=== PATIENT | male | born 1955 | race Caucasian/White ===

== ENCOUNTER 2021-10-29 06:19 | Inpatient (IN) | payer OTHER ==
[2021-10-26 10:15] LABS: Basophils # (auto) 0.1 10 ^3/uL (0-0.2); Basophils % (auto) 1.1 % (0.0-2.0); Eosinophils # (auto) 0.2 10 ^3/uL (0-0.8); Eosinophils % (auto) 2.7 % (0.0-7.0); Hematocrit 51.6 % (41.0-53.0); Lymphocytes # (auto) 1.8 10 ^3/uL (0.4-5.4); Lymphocytes % (auto) 26.6 % (10.0-50.0); Mean Corpuscular Hemoglobin 30.5 pg (28.0-32.0); Mean Corpuscular Volume 92.5 fL (80.0-100.0); Monocytes # (auto) 0.6 10 ^3/uL (0-1.3); Monocytes % (auto) 8.5 % (0.0-12.0); Neutrophils # (auto) 4.1 10 ^3/uL (1.6-8.6); Neutrophils % (auto) 61.1 % (37.0-80.0); Red Blood Cells 5.58 10^6/uL (4.5-5.90); Red Cell Distribution Width 13.8 % (11.8-14.3); White Blood Cell 6.7 10^3/uL (4.4-10.8)
[2021-10-26 10:30] LABS: Urine Bacteria NONE SEEN /hpf (None Seen); Urine Blood Negative /uL (Negative); Urine Specific Gravity 1.014 (1.001-1.035); Urine WBC 1 /hpf (0 - 3)
[2021-10-26 11:07] LABS: Calcium 8.9 mg/dL (8.5-10.1); Potassium 4.7 mmol/L (3.5-5.1)
[2021-10-26 11:11] LABS: BUN/Creatinine Ratio 17.6; Bilirubin, Total 0.6 mg/dL (0.2-1.0); Total Protein 7.3 g/dL (6.4-8.2)
[2021-10-29] VITALS (10 sets, daily range): BP systolic 96–127; BP diastolic 66–86
[~2021-10-29] VITALS: Ht 180.3 cm; Wt 119.2 kg
[~2021-10-29 06:19] MED LIST: ATO40T PO; IBUP800T27 PO; LISI-716 PO; NIC21P TD
[2021-10-29] MEDS ORDERED: ceFAZolin 1GM/50ML 100 ML IV ONE (06:38)
[2021-10-29] MEDS ORDERED: TRANEXAMIC ACID 20 ML ONE (06:55)
[2021-10-29] MEDS ORDERED: BUPIVACAINE 0.25% INJ 50ML VIAL ONE (06:56)
[2021-10-29] MEDS ORDERED: KETOROLAC TROMETH 30 MG/ML 1ML VIAL ONE (06:58)
[2021-10-29] MEDS ORDERED: VANCOMYCIN HCL 1000 MG VL ONE (06:59)
[2021-10-29] MEDS ORDERED: EPINEPHrine HCL 1 MG/1 ML AMP ONE ×2 (07:00→07:01)
[2021-10-29] MEDS ORDERED: MIDAZOLAM HCL 2MG/2ML 2ml VIAL (1mg/ml) ONE (07:02)
[2021-10-29] MEDS ORDERED: fentaNYL CITRATE 100 MCG/2 ML VL ONE (07:02)
[2021-10-29] MEDS ORDERED: MORPHINE SULF PF 2 MG/2 ML SYRG ONE (07:02)
[2021-10-29] MEDS ORDERED: TETRACAINE 1% INJ 2 ML VIAL IJ ONE (07:07)
[2021-10-29] MEDS ORDERED: diphenhdrAMINE HCL 50 MG/1 ML VL IV PRN (09:00)
[2021-10-29] MEDS ORDERED: DexAMETHasone SOD PHOS 10MG/1ML VIAL INJ IV PRN (09:00)
[2021-10-29] MEDS ORDERED: HYDROmorphone HCL 2 MG/ML VL IV PRN ×2 (09:00→10:30)
[2021-10-29] MEDS ORDERED: ONDANSETRON HCL 4 MG/2 ML VIAL IV PRN (09:00)
[2021-10-29] MEDS ORDERED: NALOXONE HCL 0.4 MG/ML VIAL IV PRN (09:00)
[2021-10-29] MEDS ORDERED: KETOROLAC TROMETH 30 MG/ML 1ML VIAL IV PRN (09:00)
[2021-10-29] MEDS ORDERED: NALBUPHINE HCL 10 MG/1ml INJECTION SUBCUT ONE (09:00)
[2021-10-29] MEDS ORDERED: NITROGLYCERIN 0.4 MG SL TAB SL PRN (10:30)
[2021-10-29] MEDS ORDERED: OXYCODONE W/ ACETAMINOPHEN 5/325MG TABLET PO PRN (10:30)
[2021-10-29] MEDS ORDERED: MORPHINE SULFATE INJECTION 2 MG/ML SYRG IV PRN (10:30)
[2021-10-29] MEDS ORDERED: PROPOFOL 10 MG/ML 20 ML IV ONE (10:40)
[2021-10-29] MEDS ORDERED: LIDOCAINE 2% (LOCAL ANESTH.) PF 5ml SDV ONE (10:40)
[2021-10-29] MEDS ORDERED: MILK OF MAGNESIA 30ML SUSP PO PRN (11:00)
[2021-10-29] MEDS ORDERED: BISACODYL 10 MG RECT SUPP PR PRN (11:00)
[2021-10-29] MEDS: ACETAMINOPHEN 325 MG TAB PO SCH ×2 (12:00→17:20)
[2021-10-29] MEDS: KETOROLAC TROMETH 30 MG/ML 1ML VIAL IV SCH ×2 (12:00→17:20)
[2021-10-29] MEDS: LACTATED RINGER'S 1,000 ML IV SCH ×2 (14:30→21:45)
[2021-10-29] MEDS ORDERED: NICOTINE 21MG/24 HR TOPICAL PATCH TD ONE (16:15)
[2021-10-29] MEDS: ceFAZolin 2 GM in D5W 5% 100 ML IV SCH ×2 (16:37→21:26)
[2021-10-29] MEDS: SODIUM CHLOR 0.9% PF (SALINE LOCK) 10ML VIAL/SYR IV SCH ×2 (16:37→21:27)
[2021-10-29] MEDS: PREGABALIN 25 MG CAP PO SCH (21:27)
[2021-10-29] MEDS: DOCUSATE SOD 100 MG CAP PO SCH (21:28)
[2021-10-29] MEDS ORDERED: ATORVASTATIN 20 MG TAB PO SCH (22:00)
[2021-10-30] VITALS (15 sets, daily range): BP systolic 106–147; BP diastolic 77–94
[2021-10-30] MEDS: KETOROLAC TROMETH 30 MG/ML 1ML VIAL IV SCH ×3 (00:22→12:00)
[2021-10-30] MEDS: ACETAMINOPHEN 325 MG TAB PO SCH ×3 (00:22→12:00)
[2021-10-30] MEDS: LACTATED RINGER'S 1,000 ML IV SCH (04:34)
[2021-10-30] MEDS: SODIUM CHLOR 0.9% PF (SALINE LOCK) 10ML VIAL/SYR IV SCH ×2 (06:24→14:00)
[2021-10-30 07:12] LABS: Basophils # (auto) 0 10 ^3/uL (0-0.2); Basophils % (auto) 0.5 % (0.0-2.0); Eosinophils # (auto) 0.1 10 ^3/uL (0-0.8); Eosinophils % (auto) 1.1 % (0.0-7.0); Hematocrit 42.9 % (41.0-53.0); Hemoglobin 14.3 g/dL (13.5-17.5); Lymphocytes # (auto) 1.1 10 ^3/uL (0.4-5.4); Lymphocytes % (auto) 12.1 % (10.0-50.0); Mean Corpuscular Hgb Conc. 33.4 g/dL (32.0-36.0); Mean Corpuscular Volume 92.8 fL (80.0-100.0); Monocytes % (auto) 10.9 % (0.0-12.0); Neutrophils # (auto) 6.9 10 ^3/uL (1.6-8.6); Neutrophils % (auto) 75.4 % (37.0-80.0); Red Blood Cells 4.62 10^6/uL (4.5-5.90); White Blood Cell 9.2 10^3/uL (4.4-10.8)
[2021-10-30 07:38] LABS: Calcium 8.5 mg/dL (8.5-10.1); Potassium 4.8 mmol/L (3.5-5.1)
[2021-10-30] MEDS ORDERED: LISINOPRIL 10 MG TAB PO SCH (10:00)
[2021-10-30] MEDS ORDERED: NICOTINE 21MG/24 HR TOPICAL PATCH TD SCH (10:00)
[2021-10-30] MEDS: DOCUSATE SOD 100 MG CAP PO SCH (10:00)
[2021-10-30] MEDS ORDERED: APIXABAN 2.5 MG TAB PO SCH (10:00)
[2021-10-30] MEDS: PREGABALIN 25 MG CAP PO SCH (10:37)
== END 2021-10-30 16:24 | disposition home health service (06) | DRG 470 ==
LOC: SUR 06:19 → TELE 10:18 → TELE-WESTW 15:45
PROVIDERS: ADMIT Orthopaedic Surgery; ATTEND Orthopaedic Surgery
PROC: 0SR906Z Replacement of Right Hip Joint with Oxidized Zirconium on Polyethylene Synthetic Substitute, Open Approach (ICD-10-PCS; principal; 2021-10-29 07:19)
DX: M16.11 Unilateral primary osteoarthritis, right hip (principal)
CPT/HCPCS: 36415; 72170; 80048; 80053; 81001; 85025; 86850; 86900; 86901; 97163; A4565; G0378; J0171; J0690; J1885; J2001; J2250; J2704; J3490; J7060

== ENCOUNTER 2025-05-01 13:16 | Emergency (ER) | payer MEDICARE, OTHER ==
[~2025-05-01] VITALS: Ht 180.3 cm; Wt 106.9 kg
[~2025-05-01 13:16] MED LIST changes: -ATO40T PO; +ATOR-507 PO; -IBUP800T27 PO; -LISI-716 PO; +LISI10TA34 PO
[2025-05-01 14:58] VITALS: BP 160/105; PULSE 61; RESP 16; TEMP 97.8; O2SAT 96
[2025-05-01] MEDS ORDERED: AUG875T PO (14:58)
[2025-05-01] MEDS ORDERED: CIPR1SUS8 OT (14:58)
--- NOTE | 2025-05-01 14:58 | ED.PDOC ---
Eye-HPI HPI Comments 69 year old male with no past medical history presents to the emergency de partment with a chief complaint of LT ear pain onset 3 days. Patient has been experiencing LT ear pain for the past 3 days, was cleaning his ear this morning and noticed blood. He has tried OTC medication with no improvement of symptoms. No other symptoms or modifying factors present at this time. Denies blunt trauma (hand blow to the ear, fall, direct hit) Denies ear trauma Denies barotrauma Denies blast injury Denies air travel Denies scuba diving Denies hearing loss Denies persistent ringing in the ear Denies fever chills night sweats unintentional weight loss Denies nausea vomiting severe headache or recent vision changes Chief Complaint: Earache Time Seen by MD: 14:31 Reviewed Notes: Nurses Notes, Medications, Allergies Allergies: Coded Allergies: NO KNOWN ALLERGIES (Unverified , 09/29/17) Home Meds Active Scripts Amoxicillin & Pot Clavulanate (AUGMENTIN TABLET) 875 Mg Tb, 875 MG PO BID for 7 Days, #14 TAB 0 Refills Prov:JORGE HAMMER HYPERBARIC TECHNICIAN 05/01/25 Ciprofloxacin-Dexamethasone (Ciprofloxacin/Dexamethaso 0.3-0.1 %) 1 Raquel Raquel, 4 DROP OT BID for 7 Days, #5 ML 0 Refills Prov:JORGE HAMMER HYPERBARIC TECHNICIAN 05/01/25 Reported Medications Nicotine (Nicoderm 21MG/24HR) 1 Patch Ph, 1 PATCH TD, PATCH 10/26/21 Atorvastatin Calcium (Lipitor) 40 Mg Tab, 40 MG PO DAILY, TAB 10/26/21 Lisinopril (Lisinopril) 10 Mg Tab, 10 MG PO DAILY for 30 Days, MG 09/07/16 Information Source: Patient Mode of Arrival: Ambulatory Timing: Days Duration: Since onset Prehospital treatment: Treatment (OTC ear medication) Quality: Pain Lids: Normal Conjunctiva: Normal Cornea: Normal Pupils: Normal EOM: Normal Fundus: Normal Slit lamp exam: Normal Anterior chamber: Normal Mouth: Normal ENT Ear Exam: Blood Nose: Normal Sinuses: Normal Oropharynx: Normal Onset: Spontaneous Throat Exposed to: None History of: None Associated signs and symptoms: Ear Pain Past Medical History PAST MEDICAL HISTORY: Denies Surgical History: Denies all surgeries Family History Family History: Reviewed,noncontributory to illness, No family hx of Cancer, No family hx of DM, No family hx of Heart mary, No family hx of HTN, No family hx ofKidney mary, No family hx of Liver mary, No family hx of Lung mary, No family hx of Stroke Social History Smoker: Non-Smoker Alcohol: Denies ETOH Use Drugs: Denies Drug Use Lives In: Home All Other Systems: Reviewed and Negative (as per HPI) Physical Exam General Appearance: No Apparent Distress, Normal HEENT: Normal ENT Inspection, Pharynx Normal, Other (no pre and post l ymphadenathopy, no signs of mastoditis, pain to lobule, canal narrow with erythema, unable to visualize TM due to brown/yellow discharge, hearing is intact) Neck: Full Range of Motion, Non-Tender, Normal, Normal Inspection Respiratory: Chest Non-Tender, Lungs Clear, No Accessory Muscle Use, No Respiratory Distress, Normal Breath Sounds Cardiovascular: No Edema, No JVD, No Murmur, No Gallop, Normal Peripheral Pulses, Regular Rate/Rhythm Breast Exam: Deferred Gastrointestinal: No Organomegaly, Non Tender, No Pulsatile Mass, Normal Bowel Sounds, Soft Genitalia: Deferred Pelvic: Deferred Rectal: Deferred Extremities: No calf tenderness, Normal capillary refill, Normal inspection, Normal range of motion, Non-tender, No pedal edema Musculoskeletal : Apperance: Normal Neurologic: Alert, shrub planter II-XII nml as Tested, No Motor Deficits, Normal Affect, Normal Mood, No Sensory Deficits Cerebellar Function: Normal Reflexes: Normal Skin: Dry, Normal Color, Warm Lymphatic: No Adenopathy Was a procedure done? Was a procedure done?: No X-Ray, Labs, Meds, VS Vital Signs Date Time Temp Pulse Resp B/P (MAP) Pulse Ox O2 Delivery O2 Flow Rate FiO2 05/01/25 14:58 61 16 96 Room Air 05/01/25 14:58 97.8 61 16 160/105 (123) 96 97.8 05/01/25 13:32 97.8 61 16 160/100 (120) 96 97.8 X-Ray, Labs, Meds, VS Comment 69 year old male with no past medical history presents to the emergency department with a chief complaint of LT ear pain onset 3 days Patient arrives alert and oriented, ABC's intact, afebrile, vital signs stable, saturating well in room air Additional MDM Review of External, Non-ED records: External records reviewed. Discussion with independent historian (EMS, family) history obtained from the patient/parents (if applicable) at bedside Chronic conditions affecting care: None Social determinants of health affecting care: None Consideration of admission (observation or admission): I considered escalation of care to admission for this patient, however given the reassuring workup, the patient is safe for outpatient management. Time of 1ST Reevaluation: 15:01 Reevaluation 1ST: Improved Patient Education/Counseling: Diagnosis, Treatment Family Education/Counseling: No Family Present Departure 1 Departure Time of Disposition: 14:57 Impression: Primary Impression: Acute otitis externa Qualified Codes: H60.312 - Diffuse otitis externa, left ear Disposition: 01 HOME / SELF CARE / HOMELESS Condition: Stable e-Prescriptions Amoxicillin & Pot Clavulanate (AUGMENTIN TABLET) 875 Mg Tb 875 MG PO BID for 7 Days, #14 TAB 0 Refills Prov: JORGE HAMMER HYPERBARIC TECHNICIAN 05/01/25 Ciprofloxacin-Dexamethasone (Ciprofloxacin/Dexamethaso 0.3-0.1 %) 1 Raquel Raquel 4 DROP OT BID for 7 Days, #5 ML 0 Refills Prov: JORGE HAMMER HYPERBARIC TECHNICIAN 05/01/25 Critical Care Note Critical Care Time?: No Stability Stability form required: No Heart Score Heart Score: Heart Score Response (Comments) Value History N/A 0 EKG N/A 0 Age N/A 0 Risk Factors N/A 0 Troponin N/A 0 Total 0 I personally scribed for JORGE HAMMER NP ([email or web address]) on 05/01/25 at 15:19. Electronically submitted by Melvi Colon ([email or web address]). JORGE HAMMER HYPERBARIC TECHNICIAN May 01, 2025 14:58
== END 2025-05-01 15:02 | disposition home or self-care (01) ==
LOC: ER 13:26
DX: H60.502 Unspecified acute noninfective otitis externa, left ear (principal); Z79.899 Other long term (current) drug therapy